=== PATIENT | female | born 1995 | race Caucasian/White ===

== ENCOUNTER 2017-03-30 12:26 | Emergency (ER) | payer OTHER ==
[2017-03-30 12:54] VITALS: BP 137/81
--- NOTE | 2017-03-30 13:29 | UC ---
Throat Pain/Nasal Luis F HPI - HPI Summary HPI Summary: Pt presents with sinus pain/pressure/congestion for the last 1.5 weeks. She developed a sore throat 3 days ago. Has been taking OTC nyquill and sudafed with mild relief at first, but not so much now. Denies fever, chills, SOB, chest pain, abdominal pain, n/v/d/c. - History of Current Complaint Chief Complaint: UCRespiratory Stated Complaint: SINUS ISSUE Hx Obtained From: Patient Hx Last Menstrual Period: 03/19/17 Onset/Duration: Gradual Onset Severity: Mild Pain Intensity: 3 Pain Scale Used: 0-10 Numeric - Allergies/Home Medications Allergies/Adverse Reactions: Allergies Allergy/AdvReac Type Severity Reaction Status Date / Time No Known Allergies Allergy Verified 03/30/17 12:54 Home Medications: Home Medications Cetirizine* [ZyrTEC 10 MG TAB*] 10 mg PO DAILY 03/30/17 [History Confirmed 03/30] Levonorgestrel & Eth Estradiol [Sronyx 0.1-20 mg-Mcg] 1 tab PO DAILY 03/30/17 [ History Confirmed 03/30/17] Wqppaapszgeny-Jlwsicceya-Mvfuv [Nyquil Severe Cold/Flu 5-6.25-10-325 mg/15Ml] 1 liq PO DAILY PRN 03/30/17 [History Confirmed 03/30/17] Pseudoephedrine HCL ER TAB* [Sudafed 12 Hour*] 1 tab PO DAILY PRN 03/30/17 [ History Confirmed 03/30/17] PMH/Surg Hx/FS Hx/Imm Hx - Surgical History Surgical History: None - Social History Occupation: Student Lives: Dormitory/Roommates Alcohol Use: None Substance Use Type: None Smoking Status (MU): Never Smoked Tobacco Have You Smoked in the Last Year: No - Immunization History Most Recent Influenza Vaccination: none Most Recent Tetanus Shot: 2008 Most Recent Pneumonia Vaccination: never Review of Systems Constitutional: Negative Skin: Negative Eyes: Negative ENT: Sore Throat, Nasal Discharge, Sinus Congestion, Sinus Pain/Tenderness Respiratory: Negative Cardiovascular: Negative Gastrointestinal: Negative All Other Systems Reviewed And Are Negative: Yes Physical Exam Triage Information Reviewed: Yes Appearance: Well-Appearing, No Pain Distress, Well-Nourished Vital Signs: Initial Vital Signs Temp 99.3 F 03/30/17 12:50 Pulse 98 03/30/17 12:50 Resp 16 03/30/17 12:50 BP 137/81 03/30/17 12:50 Pulse Ox 100 03/30/17 12:50 Vital Signs Reviewed: Yes Eyes: Positive: Conjunctiva Clear. Negative: Conjunctiva Inflamed, Discharge ENT: Positive: Hearing grossly normal, Pharynx normal, Nasal congestion, Nasal drainage, TMs normal, Sinus tenderness, Uvula midline. Negative: Pharyngeal erythema, TM bulging, TM dull, TM red, Tonsillar swelling, Tonsillar exudate, Hoarse voice Neck: Positive: Supple, Nontender, No Lymphadenopathy Respiratory: Positive: Chest non-tender, Lungs clear, Normal breath sounds, No respiratory distress, No accessory muscle use Cardiovascular: Positive: RRR, No Murmur, Pulses Normal Neurological: Positive: Alert Psychological: Positive: Age Appropriate Behavior Skin: Negative: rashes Throat Pain/Nasal Course/Dx - Course Course Of Treatment: Suspect sinusitis, treat kristie amoxicillin - Differential Dx/Diagnosis Provider Diagnoses: Sinusitis Discharge - Discharge Plan Condition: Stable Disposition: HOME Prescriptions: Amoxicillin PO (*) [Amoxicillin 500 MG CAP*] 500 mg PO Q12H #20 cap Patient Education Materials: Sinusitis (ED) Referrals: No Primary Care Phys,NOPCP [Primary Care Provider] - Additional Instructions: If you develop a fever, shortness of breath, chest pain, new or worsening symptoms - please call your PCP or go to the ED.
== END 2017-03-30 13:39 | disposition home or self-care (01) ==
LOC: UCEAST 12:26
DX: J32.9 Chronic sinusitis, unspecified (principal)
CPT/HCPCS: 99212; G0463

== ENCOUNTER 2017-08-18 21:10 | Emergency (ER) | payer OTHER ==
[2017-08-18] MEDS ORDERED: Acetaminophen TAB* 325 MG PO ONE (22:02)
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
[2017-08-18 22:40] VITALS: BP 130/78
--- NOTE | 2017-08-19 07:36 | RAD ---
INDICATION: Left knee injury. TECHNIQUE: 4 views of the left knee were obtained. FINDINGS: The bones are in normal alignment. No joint effusion or fracture is seen. Joint spaces appear maintained. IMPRESSION: NO EVIDENCE FOR FRACTURE.
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
== END 2017-08-18 22:39 | disposition home or self-care (01) ==
LOC: ED 21:10
DX: S89.92XA Unspecified injury of left lower leg, initial encounter (principal); M25.562 Pain in left knee; V09.9XXA Pedestrian injured in unspecified transport accident, initial encounter; Y92.9 Unspecified place or not applicable
CPT/HCPCS: 99282; A9270-GY